=== PATIENT | female | born 1965 | race Caucasian/White ===

== ENCOUNTER 2019-03-25 06:28 | Day surgery (SDC) | payer OTHER ==
[2019-03-25] VITALS (12 sets, daily range): BP systolic 134–170; BP diastolic 60–79; PULSE 76–84; RESP 15–23; Ht 152.4 cm; Wt 63.7 kg
[~2019-03-25] VITALS: Ht 152.4 cm; Wt 63.7 kg
[2019-03-25] MEDS ORDERED: POLYMYXIN/BACITRACIN 1L IRRIG IRR ONE (08:30)
[2019-03-25] MEDS ORDERED: CEFAZOLIN 1 GM/50 ML (PMX) 50 ML IVPB ONE ×2 (08:30→09:21)
[2019-03-25] MEDS: SOD CHLORIDE 0.9% 1,000 ML IV SCH ×2 (08:53→10:00)
[2019-03-25] MEDS ORDERED: HEPARIN 1000 UNITS/ML 10 ML INJ ONE (09:04)
[2019-03-25] MEDS ORDERED: LIDOCAINE 1%/EPI (1:100,000) (MDV) 20 ML ONE ×2 (09:04→11:34)
[2019-03-25] MEDS ORDERED: MIDAZOLAM 1 MG/ML 2 ML INJ ONE ×3 (09:21→12:02)
[2019-03-25] MEDS ORDERED: FENTAnyl 50 MCG/ML VIAL ONE ×3 (09:21→11:56)
[2019-03-25] MEDS ORDERED: HYDROCODONE/APAP (5/325) TAB PO ONE (13:00)
== END 2019-03-25 15:05 | disposition home or self-care (01) ==
LOC: SDS 06:28 → RAD 06:28
PROVIDERS: ATTEND Internal Medicine Hematology & Oncology
DX: C50.912 Malignant neoplasm of unspecified site of left female breast (principal)
CPT/HCPCS: 36561; 76942; C1788; J0690; J1644; J2250; J3010

== ENCOUNTER → 2019-05-01 | Outpatient (CLI) | payer OTHER ==
--- NOTE | 2019-05-02 07:03 | RADRPT ---
Echocardiogram Report Patient Name: Manas AGUDELO ID: [id number] : 1965 (53y 10m)Study Date: 05/01/2019 11:43:18 AM Gender: FAccession #: [id number] Tech: Wilma Plata RDCS Location: EKG Ref.Physician: AYLA LEDESMA Height(Cm): BSA: Weight(Kg): Quality: AdequateOrder Physician: AYLA LEDESMA Account #: Procedures: Echocardiographic Report: Transthoracic echocardiogram with complete 2D, M-Mode, and doppler examination. Indications: Breast Cancer. Measurements: 2D/M Mode Doppler Measurement Value Normal Range Measurement Value Normal Range LVIDd 2D 3.2 [ 3.8 - 5.2 ] cm AV Peak Canelo 1.5 [ 100.0 - 170.0 ] cm/sec LVIDs 2D 1.6 [ 2.2 - 3.5 ] cm AV Peak PG 9.0 [ 2.0 - 9.0 ] mmHg LVPWd 2D 1.0 [ 0.6 - 0.9 ] cm LVOT Peak Canelo 1.2 [ 70.0 - 110.0 ] cm/sec IVSd 2D 1.0 [ 0.6 - 0.9 ] cm LVOT Peak PG 5.0 [ 2.0 - 6.0 ] mmHg AoR Diam 2D 2.2 [ 2.3 - 3.1 ] cm MV E Peak Canelo 0.9 [ 60.0 - 130.0 ] cm/sec LA/Ao 2D 1 ratio MV A Peak Canelo 0.7 [ 100.0 - 120.0 ] cm/sec LA Dimen 2D 2.8 [ 2.7 - 3.8 ] cm MV E/A 1.4 [ 0.8 - 1.5 ] ratio MV Decel Time 165 [ 104 - 258 ] msec Lat E` Canelo 0.1 [ 10.0 - 15.0 ] cm/sec MV E/A 1.4 [ 0.8 - 1.5 ] ratio TR Peak Canelo 3.2 [ 100.0 - 280.0 ] cm/sec TR Peak PG 42.0 mmHg RVSP 45.0 [ 10.0 - 36.0 ] mmHg RA Pressure 3.0 mmHg Findings: Left Ventricle: Normal left ventricular systolic function. Normal left ventricular cavity size. Normal left ventricular wall thickness. Ejection fraction is visually estimated at 65 %. Tissue Doppler/Mitral Doppler indices are within normal limits. Right Ventricle: Normal right ventricular size. Normal right ventricular systolic function. Left Atrium: There is mild enlargement of left atrium. Right Atrium: The right atrium is normal in size. Mitral Valve: Normal appearance and function of the mitral valve with trace physiologic regurgitation. Aortic Valve: Normal appearance of the aortic valve. No significant aortic stenosis or insufficiency. Tricuspid Valve: Normal appearance of the tricuspid valve. The estimated Peak RVSP is 45 mmHg. There is mild to moderate tricuspid regurgitation. Pulmonic Valve: Normal pulmonic valve appearance. Pericardium: Normal pericardium with no significant pericardial effusion. Aorta: Normal aortic root. IVC: Normal size and normal respiratory collapse consistent with normal right atrial pressure. Conclusions: Normal left ventricular systolic function. Normal left ventricular cavity size. Normal left ventricular wall thickness. Ejection fraction is visually estimated at 65 %. Tissue Doppler/Mitral Doppler indices are within normal limits. There is mild to moderate tricuspid regurgitation. The estimated Peak RVSP is 45 mmHg. Normal size and normal respiratory collapse consistent with normal right atrial pressure. Electronically Signed By: Tariq Ace 2019-05-02 07:02:53 PDT
== END | disposition home or self-care (01) ==
LOC: EKG 11:28
PROVIDERS: ATTEND Internal Medicine Hematology & Oncology
DX: C50.919 Malignant neoplasm of unspecified site of unspecified female breast (principal)
CPT/HCPCS: 93306